=== PATIENT | male | born 1945 | race Caucasian/White ===

== ENCOUNTER → 2020-10-06 | Outpatient (CLI) | payer OTHER, MEDICARE | LOC: SJCVC 13:34 | PROVIDERS: ATTEND Internal Medicine Cardiovascular Disease | DX: I44.7 Left bundle-branch block, unspecified (principal); R94.31 Abnormal electrocardiogram [ECG] [EKG]; I25.5 Ischemic cardiomyopathy; I13.2 Hypertensive heart and chronic kidney disease with heart failure and with stage 5 chronic kidney disease, or end stage renal disease; E11.22 Type 2 diabetes mellitus with diabetic chronic kidney disease; N18.6 End stage renal disease; I50.23 Acute on chronic systolic (congestive) heart failure; I25.810 Atherosclerosis of coronary artery bypass graft(s) without angina pectoris; Z95.1 Presence of aortocoronary bypass graft; I25.2 Old myocardial infarction; Z79.82 Long term (current) use of aspirin; Z79.4 Long term (current) use of insulin; Z79.899 Other long term (current) drug therapy; Z82.49 Family history of ischemic heart disease and other diseases of the circulatory system; Z87.891 Personal history of nicotine dependence ==

== ENCOUNTER → 2020-10-20 | Outpatient (CLI) | payer OTHER, MEDICARE | LOC: LAB 11:36 | PROVIDERS: ATTEND Internal Medicine Cardiovascular Disease | DX: U07.1 COVID-19 (principal) ==

== ENCOUNTER 2020-10-25 08:55 | Observation (INO) | payer OTHER, MEDICARE ==
[~2020-10-25] VITALS: Ht 180.3 cm; Wt 63.0 kg
--- NOTE | ~2020-10-25 | P ---
[facility] [place] [address] PROCEDURE REPORT Name: MARIELENA PADILLA Room #: 219-P [facility] M.R.#: [id number] Admission: 10/25/20 Attend Phys: Alexys Montes MD Discharge: Date of : 41 Report #: [id number] THIS REPORT FOR: cc: Tiburcio Leo Bradley Dean DO Couchonnal, Luis F. MD ~ PROCEDURE: Bi-V ICD upgrade. 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 The patient also has end-stage renal disease, on dialysis. ANESTHESIA: The patient underwent MAC anesthesia with no anesthesia related complications. DESCRIPTION OF PROCEDURE: The patient was brought to EP laboratory in fasting and sedated state, prepped and draped in a sterile fashion. He received IV antibiotics prior to initiation of the procedure. Next, an incision was made over the prior pocket. The pocket was entered device was removed from the pocket and then access obtained twice to left axillary vein using the extrathoracic approach and sheaths were positioned using the modified Seldinger technique. Next, a lead was positioned into the right ventricular mid septum with adequate pacing and sensing thresholds. There was no interference from the prior RV lead previously positioned 2 years ago. Next, a guide sheath was placed in the coronary sinus and he had evidence of an anterolateral branch and a posterolateral branch. I was able to advance the lead into this anterolateral branch with good pacing and sensing thresholds. The sheath was split and the lead remained in position. Next, I connected the LV lead, the new ICD lead and the atrial lead from the prior device to the new device. The ventricular lead was capped and placed in the pocket. The pocket was expanded to make room for the larger device and antibiotic pouch was also placed in the pocket. The pocket was irrigated with vancomycin and then the pocket was closed in 2 layers using 2-0 for the deep layer, 3-0 for the middle layer. Surgical glue was placed to outer skin layer. There were no procedure related complications. The explanted pacemaker was a Medtronic, model # W1DR01, serial # [id number], implanted back in 10/2018. The right atrial lead was a 4076, 45 cm, serial # [id number], implanted on 11/03/2018. The capped RV lead was a 4076, 52 cm, serial # [id number], implanted on 11/13/2018. The newly implanted ICD lead was a Medtronic single coil 6935, serial #[id number], and the newly placed LV lead was a model #02912, serial #[id number]. The atrial lead demonstrated a P-wave of 2.6 millivolts, pacing impedance of 399 ohms and pacing threshold 0.5 volts at 0.5 msec. The RV lead demonstrated R waves of 11 millivolts, pacing impedance of 498 ohms and a pacing threshold of 0.4 V at 0.5 milliseconds. [facility] [address] [place] [address] PROCEDURE REPORT Name: MARIELENA PADILLA Room #: 219-P [facility] M.R.#: [id number] Admission: 10/25/20 Attend Phys: Alexys Montes MD Discharge: Date of : 41 Report #: [id number] LV lead demonstrated a pacing impedance of 697 ohms and the pacing threshold was 0.5 volts at 0.5 milliseconds, pacing from the LV1-LV2 pacing configuration. The LV lead was programmed to pace 30 milliseconds prior to the RV lead, which resulted in a QRS complex of 125 milliseconds. The device was programmed to the DDDR 60-130 mode with a VF with a VT zone of 180-220 beats per minute with burst x 3 followed by ramp x 3 followed by max output shocks. The VF zone was set at greater than 220 beats per minute with ATP while charging followed by max output shocks. CONCLUSIONS: 1. Successful upgrade to a biventricular ICD. 2. Satisfactory atrial, right ventricular and left ventricular pacing and sensing thresholds. By: [id number] Alexys Montes MD /nt
[2020-10-25 09:56] LABS: ABSOLUTE NEUTROPHILS 5.6 thou/uL (1.4-8.2); BASOPHILS 0.7 % (0.0-2.0); EOSINOPHILS 1.2 % (0.0-3.0); HEMATOCRIT 34.7 % (42.0-52.0); HEMOGLOBIN 10.9 gm/dL (14.0-18.0); LYMPHOCYTES 7.8 % (24.0-44.0); MCH 31.2 pg (26.0-34.0); MCHC 31.5 g/dL (28.0-37.0); MCV 99.2 fL (80.0-100.0); MONOCYTES 8.7 % (1.0-8.0); PLATELET COUNT 167 thou/uL (150-400); POLYS 81.6 % (36.0-66.0); RDW 18.8 % (10.5-14.5); WBC 6.9 thou/uL (4.0-11.0)
[2020-10-25 10:06] VITALS: BP 109/62
[2020-10-25 10:09] LABS: CALCIUM 9.4 mg/dL (8.5-10.1); CREATININE 5.3 mg/dL (0.7-1.3); POTASSIUM 4.3 mmol/L (3.5-5.1)
[2020-10-25 10:15] LABS: ALBUMIN 3.2 g/dL (3.4-5.0); TOTAL BILIRUBIN 0.6 mg/dL (0.2-1.0); TOTAL PROTEIN 7.5 g/dL (6.4-8.2)
[2020-10-25 10:20] LABS: APTT 27.8 Seconds (24.5-32.8); INR 1.1; PROTIME 11.2 Seconds (9.3-11.4)
[2020-10-25] MEDS ORDERED: PROAIR HFA8.5 GM INH (10:22)
[2020-10-25] MEDS ORDERED: ASA81BEC PO (10:23)
[2020-10-25] MEDS ORDERED: LIPITOR 20 MG T20 M1 PO (10:23)
[2020-10-25] MEDS ORDERED: VITAMIN D325 MC2 PO (10:24)
[2020-10-25] MEDS ORDERED: BREO ELLIPTA 11 EACH INH (10:25)
[2020-10-25] MEDS ORDERED: LASIX 40 MG TAB40 MG PO (10:25)
[2020-10-25] MEDS ORDERED: AMARYL2 M1 PO (10:26)
[2020-10-25] MEDS ORDERED: LANTUS SUBQ (10:26)
[2020-10-25] MEDS ORDERED: ISOSORBIDE MONO30 M1 PO (10:27)
[2020-10-25] MEDS ORDERED: LEVOTHYROXINE112 MC1 PO (10:27)
[2020-10-25] MEDS ORDERED: RENAL-VITE TAB0.8 MG PO (10:28)
[2020-10-25] MEDS ORDERED: BRILINTA90 MG PO (10:28)
[2020-10-25] MEDS ORDERED: TOPROL XL25 MG PO (10:28)
[2020-10-25 13:32] LABS: ANISOCYTOSIS 1+
[2020-10-25 16:15] VITALS: BP 105/52
[2020-10-25 16:30] VITALS: BP 94/48
[2020-10-25 17:00] VITALS: BP 100/55
--- NOTE | 2020-10-25 17:34 | NUR ---
PT ADMITED FROM [facility]. ADMISSION HX AND ASSESSMENT COMPLETED. PT ALERT AND ORIENTED. PLEASANT AND COOPERATIVE WITH CARES. SMALL DRAINAGE NOTED ON THE AICD INCISION. PT ON BEDREST. VPACED ON TELE. NO CONCERNS AT THIS TIME.
[2020-10-25 17:45] VITALS: BP 90/51
[2020-10-25 20:28] VITALS: BP 100/62
[2020-10-26 00:33] VITALS: BP 152/91
[2020-10-26 00:46] VITALS: BP 102/64
--- NOTE | 2020-10-26 04:11 | NUR ---
RESTED THIS SHIFT BUT HAVE NOT SLEPT MUCH. HARD TO MOVE AND CANT LAY ON LEFT SIDE. WORKING ON PLAN OF CARE FOR NOC. PROGRESSING SLOWLY TOWARDS DISCHARGE GOALS PAST DIALYSIS THIS AM. SNACK GIVEN PER PATIENT REQUEST. DENIES COMPLAINTS OF PAIN. CONTINUE TO ASSES.
[2020-10-26 05:42] VITALS: BP 94/53
--- NOTE | 2020-10-26 14:20 | NUR ---
PT RECEIVED DIALYSIS THIS AM. PT HAD CHEST XRAY POST DIALYSIS. PT AICD/PPM SITE PINK AND WARM, EDGES APPROXIMATED. PT WEARING IMMOBILIZER LEFT ARM. PT STATES HE HAS PAIN RELATED TO SITE, AND LIMITED MOBILITY OF ARM. PT TO DISCHARGE HOME. NO CONCERNS AT THIS TIME.
[2020-10-26 14:37] VITALS: BP 132/69
== END 2020-10-26 15:59 | disposition home or self-care (01) ==
LOC: CATH 08:55 → 2N 16:00 → CATH 16:02 → 2N 10-26 15:59
PROVIDERS: ADMIT Internal Medicine Cardiovascular Disease; ATTEND Internal Medicine Cardiovascular Disease
DX: I25.5 Ischemic cardiomyopathy (principal); I25.10 Atherosclerotic heart disease of native coronary artery without angina pectoris; I47.2 Ventricular tachycardia; I44.7 Left bundle-branch block, unspecified; I12.0 Hypertensive chronic kidney disease with stage 5 chronic kidney disease or end stage renal disease; E11.22 Type 2 diabetes mellitus with diabetic chronic kidney disease; N18.6 End stage renal disease; Z79.899 Other long term (current) drug therapy; Z79.4 Long term (current) use of insulin; Z79.82 Long term (current) use of aspirin

== ENCOUNTER → 2021-01-05 | Outpatient (CLI) | payer OTHER, MEDICARE ==
[~2021-01-05] MED LIST: AMARYL2 M1 PO; ASA81BEC PO; BREO ELLIPTA 11 EACH INH; BRILINTA90 MG PO; ISOSORBIDE MONO30 M1 PO; LANTUS SUBQ; LASIX 40 MG TAB40 MG PO; LEVOTHYROXINE112 MC1 PO; LIPITOR 20 MG T20 M1 PO; PROAIR HFA8.5 GM INH; RENAL-VITE TAB0.8 MG PO; TOPROL XL25 MG PO; VITAMIN D325 MC2 PO
== END ==
LOC: SJCVC 12:20
PROVIDERS: ATTEND Internal Medicine Cardiovascular Disease
DX: I45.10 Unspecified right bundle-branch block (principal); R94.31 Abnormal electrocardiogram [ECG] [EKG]; I44.7 Left bundle-branch block, unspecified; I25.5 Ischemic cardiomyopathy; I25.810 Atherosclerosis of coronary artery bypass graft(s) without angina pectoris; I25.2 Old myocardial infarction; I13.2 Hypertensive heart and chronic kidney disease with heart failure and with stage 5 chronic kidney disease, or end stage renal disease; I50.23 Acute on chronic systolic (congestive) heart failure; E11.22 Type 2 diabetes mellitus with diabetic chronic kidney disease; N18.6 End stage renal disease; E03.9 Hypothyroidism, unspecified; Z86.16 Personal history of COVID-19; Z95.810 Presence of automatic (implantable) cardiac defibrillator; Z95.1 Presence of aortocoronary bypass graft; Z99.2 Dependence on renal dialysis; Z79.82 Long term (current) use of aspirin; Z79.899 Other long term (current) drug therapy; Z79.4 Long term (current) use of insulin; Z82.49 Family history of ischemic heart disease and other diseases of the circulatory system; Z87.891 Personal history of nicotine dependence

== ENCOUNTER → 2021-07-06 | Outpatient (CLI) | payer OTHER, MEDICARE | LOC: SJCVC 13:13 | PROVIDERS: ATTEND Internal Medicine Cardiovascular Disease | DX: R94.31 Abnormal electrocardiogram [ECG] [EKG] (principal); I45.10 Unspecified right bundle-branch block; I25.810 Atherosclerosis of coronary artery bypass graft(s) without angina pectoris; I25.5 Ischemic cardiomyopathy; I13.2 Hypertensive heart and chronic kidney disease with heart failure and with stage 5 chronic kidney disease, or end stage renal disease; E11.22 Type 2 diabetes mellitus with diabetic chronic kidney disease; N18.6 End stage renal disease; I50.23 Acute on chronic systolic (congestive) heart failure; E03.9 Hypothyroidism, unspecified; E16.2 Hypoglycemia, unspecified; Z95.810 Presence of automatic (implantable) cardiac defibrillator; Z86.16 Personal history of COVID-19; Z95.1 Presence of aortocoronary bypass graft; Z79.899 Other long term (current) drug therapy ==